=== PATIENT | female | born 1970 | race African-American/Black ===

== ENCOUNTER → 2018-09-01 | Day surgery (SDC) | payer BC ==
[2018-08-26 12:24] LABS: ALANINE AMINOTRANSFERASE 12 IU/L (0-55); ALBUMIN 4.1 g/dL (3.5-5.0); ALBUMIN/GLOBULIN RATIO 1.2 (0.8-2.0); ALKALINE PHOSPHATASE 45 IU/L (40-150); ANION GAP 11.1 mmol/L (8-16); BASOPHILS # (AUTO) 0.1 (0.0-0.1); BASOPHILS % 1.1 % (0.0-1.0); BLOOD UREA NITROGEN 12 mg/dL (7-26); BUN/CREATININE RATIO 15 (6-25); CALCIUM 9.4 mg/dL (8.4-10.2); CARBON DIOXIDE 26 mmol/L (22-29); CHLORIDE 104 mmol/L (98-107); CREATININE, SERUM 0.79 mg/dL (0.57-1.11); EOSINOPHILS # (AUTO) 0.2 (0.0-0.4); EOSINOPHILS % 2.2 % (0.0-6.0); EST GLOMERULAR FILTRATION RATE > 60 ML/MIN (60-); GLUCOSE 86 mg/dL (74-118); HEMATOCRIT 35.4 % (34.2-44.1); HEMOGLOBIN 9.9 g/dL (12.0-16.0); LYMPHOCYTES # (AUTO) 2.1 (1.0-3.2); LYMPHOCYTES % 30.7 % (18.0-39.1); MEAN CORPUSCULAR HEMOGLOBIN 18.5 pg (28-32); MEAN CORPUSCULAR VOLUME 66.3 fL (81-99); MONOCYTES # (AUTO) 0.7 (0.2-0.8); MONOCYTES % 10.2 % (4.4-11.3); NEUTROPHILS # (AUTO) 3.9 (2.1-6.9); NEUTROPHILS % 55.7 % (38.7-80.0); PLATELET COUNT 362 x10e3/uL (140-360); POTASSIUM 4.1 mmol/L (3.5-5.1); RED BLOOD COUNT 5.34 x10e6/uL (3.6-5.1); RED CELL DISTRIBUTION WIDTH 29.2 % (11.7-14.4); SODIUM 137 mmol/L (136-145)
[~2018-09-01] VITALS: Ht 157.5 cm; Wt 70.3 kg
[2018-09-01] VITALS (14 sets, daily range): BP systolic 112–135; BP diastolic 74–88
[~2018-09-01] MED LIST: ALBUTEROL0.63 MG/3 INH; ALPRAZOLAM 0.5 MG TAB ONE; AMLODIPINE BESY10 MG PO; ASPIR 8181 MG PO; FENTANYL CITRATE/PF 100MCG/2 ML INJ ONE; FERROUS SULFAT325 MG PO; FLOVENT HFA12 GM INH; GLIMEPIRIDE2 MG PO; HEPARIN SOD/SOD CHLORIDE 2,000 ML ONE; IOPAMIDOL 370 MG/ML 200 ML INFUS..BTL INJ ONE; LIDOCAINE HCL 2% LOCAL 20 ML VIAL ONE; LISINOPRIL10 MG PO; METFORMIN HCL500 MG PO; METOPROLOL SUCC25 MG PO; MIDAZOLAM HCL 2 MG/2 ML VIAL ONE; SODIUM CHLORIDE 0.9% 1000ML 1,000 ML ONE; TRULICITY SC; VERAPAMIL HCL 2.5 MG/ML 2 ML VIAL ONE
--- NOTE | 2018-09-01 12:50 | NUR ---
Report received from Joesph BETANCOURT, review of procedural findings and medications given. Patient drowsy, easily aroused. maintains airway and room air saturations of 98-99%. No gross issues of pressure, pain, pallor or dysrhythmia. IV site patent with NS 0.9% at 100ml/hr by dial-flow. patient hemodynamically stable with hemostasis right TR band dressing CDI w/o s/s of bleeding. patient transferred to [facility] for further monitoring- [facility] [place] procedure: coronary angiography sheath puller: Peng RTr TR band 13ml Meds Given Intra-Procedure Sedatives Versed - 3 mg Fentanyl - 75 mcg Radial Cocktail IA Heparin - 3000 Units verapamil - 2.5 mg Nitro - 200mcg Fluids Input - 150ml Output - dtv Contrast Isovue 370 - 55ml Other Meds NA
--- NOTE | 2018-09-01 13:26 | Operative Report ---
DATE OF PROCEDURE: 09/01/2018 SURGEON: Vaibhav Raymond MD INDICATION: Coronary artery disease, abnormal stress test. PROCEDURES PERFORMED: 1. Left heart catheterization, selective coronary angiography, left ventriculography. 2. Deployment of right wrist TR band. COMPLICATIONS: None. RECOMMENDATIONS: Medical therapy. DESCRIPTION OF PROCEDURE: Access obtained in the right radial artery. A 5-[place] sheath was placed. Diagnostic coronary angiogram revealed no angiographic coronary artery disease, excellent flow in all vessels, no critical stenosis or occlusion. LV ejection is 65%. LV end-diastolic pressure of 10. No gradient across the aortic valve on pullback. Right wrist guide and sheath removed. TR band applied. The patient discharged home same day. Vaibhav Raymond MD [facility] /[id number]
--- NOTE | 2018-09-01 14:12 | NUR ---
2ML OF AIR REMOVED FROM RIGHT WRIST TR BAND BY CHELSEA ZARAGOZA RN. PATIENT TOLERATED WELL. NO SIGNS OR SYMPTOMS OF ACTIVE BLEEDING TO RIGHT WRIST SITE AT THIS TIME. PULSE OX TO SECOND DIGIT OF RIGHT HAND. WILL MONITOR.
--- NOTE | 2018-09-01 14:27 | NUR ---
CHELSEA ZARAGOZA RN ATTEMPTED TO REMOVE 2ML OF AIR FROM RIGHT WRIST TR BAND. RIGHT WRIST SITE APPEARED TO HAVE STARTED BLEEDING. CHELSEA ZARAGOZA RN STATED SHE PLACED 3ML OF AIR INTO TR BAND. PATIENT APPEARS TO BE IN NO SIGNS OF ACUTE DISTRESS. WILL MONITOR.
--- NOTE | 2018-09-01 15:35 | NUR ---
Removed 2ml of air from right wrist TR band. RIght wrist site appears to be without signs or symptoms of active bleeding at this time. Palpable right radial pulse. Patient tolerated well. Reviewed discharge instructions with friend at bedside. Reviewed activity restrictions, dressing care, follow up, medication reconciliation, and what signs and symptoms to look for: when to call the doctor and when to call 911. Patient and family verbalized understanding and had no questions at this time.
--- NOTE | 2018-09-01 15:54 | NUR ---
Removed 2ml of air from right wrist TR band. Palpable right radial pulse. Right wrist site appears to be without signs or symptoms of active bleeding at this time. No distress noted.
--- NOTE | 2018-09-01 16:13 | NUR ---
Removed 3ml of air from TR band right wrist . Right wrist site appears to be without signs or symptoms of active bleeding at this time. Palpable right radial pulse. Patient tolerated well. No distress noted at this time.
--- NOTE | 2018-09-01 16:45 | NUR ---
Patient dressed and ready for discharge. IV to left hand removed with catheter tip intact. Dressing placed per protocol. Dressing to left hand is clean,dry, and intact. Dressing to right wrist is clean,dry, and intact. Armboard to right wrist in place. Patient denies tingling/numbness to right hand. RIght hand is warm and not pale in color. Patient discharged from unit via wheelchair with belongings. Patient discharged to private vehicle with friend as school bus driver/mechanic. No distress noted at time of discharge.
== END | disposition home or self-care (01) ==
LOC: CATH LAB 11:25
PROVIDERS: ATTEND Internal Medicine Interventional Cardiology
DX: I25.118 Atherosclerotic heart disease of native coronary artery with other forms of angina pectoris (principal); I10 Essential (primary) hypertension; R94.39 Abnormal result of other cardiovascular function study; E11.9 Type 2 diabetes mellitus without complications; D64.9 Anemia, unspecified; J45.909 Unspecified asthma, uncomplicated; Z01.812 Encounter for preprocedural laboratory examination; Z79.82 Long term (current) use of aspirin; Z79.84 Long term (current) use of oral hypoglycemic drugs; Z68.30 Body mass index [BMI] 30.0-30.9, adult
CPT/HCPCS: 36415; 80053; 84702; 85025; 93458; C1769; C1887; J2001; J2250; J7030; Q9967